=== PATIENT | male | born 1995 | race Caucasian/White ===

== ENCOUNTER 2017-10-15 11:35 | Emergency (ER) | payer SELFPAY ==
[~2017-10-15 11:35] MED LIST: CLON.1 PO; GUAN1ER PO; LAMO150 PO; LITH150C7 PO; LITH300 PO
== END 2017-10-15 12:03 | disposition left against medical advice (07) ==
LOC: NED 11:35
DX: Z03.89 Encounter for observation for other suspected diseases and conditions ruled out (principal)
CPT/HCPCS: 99281